=== PATIENT | male | born 1960 | race Caucasian/White ===

== ENCOUNTER → 2021-10-14 | Outpatient (CLI) | payer BC ==
[~2021-10-14] MED LIST: ASPIR 8181 MG PO; CRESTOR10 MG PO; ELIQUIS5 MG PO; FLOVENT DISKUS50 MCG INH; FUROSEMIDE40 MG PO; IMDUR ER TAB 3030 MG PO; LOPRESSOR50 MG PO; POTASSIUM CHLO10 MEQ PO; PROTONIX 40 MG40 M1 PO; SERTRALINE HCL100 MG PO; VITAMIN D325 MCG PO
== END ==
LOC: ECHO 08:40 → NM 10:00
DX: I20.8 Other forms of angina pectoris (principal); I48.21 Permanent atrial fibrillation; R06.02 Shortness of breath
CPT/HCPCS: ECHO; 78452; 93017; 93306; A9502; J2785; Q9957

== ENCOUNTER → 2021-10-23 | Outpatient (CLI) | payer BC ==
[2021-10-23 13:40] LABS: HEMOGLOBIN 13.1 gm/dl (14.0-17.5); RED BLOOD COUNT 4.47 M/UL (4.20-5.50); WHITE BLOOD COUNT 7.3 K/UL (4.5-11.0)
[2021-10-23 14:06] LABS: BUN/CREATININE RATIO 20 (0-10)
== END ==
LOC: LAB 13:05
PROVIDERS: Internal Medicine Interventional Cardiology
DX: Z01.810 Encounter for preprocedural cardiovascular examination (principal); I25.119 Atherosclerotic heart disease of native coronary artery with unspecified angina pectoris; I48.21 Permanent atrial fibrillation; E78.5 Hyperlipidemia, unspecified; I50.9 Heart failure, unspecified; R06.02 Shortness of breath; N18.9 Chronic kidney disease, unspecified
CPT/HCPCS: 36415; 80048; 85025; 85610; 85730; 93005

== ENCOUNTER → 2021-10-30 | Outpatient (CLI) | payer BC ==
[~2021-10-30] VITALS: Ht 182.9 cm; Wt 164.7 kg
[~2021-10-30] MED LIST changes: +GLUCOPHAGE 500500 MG PO; +RANOLAZINE ER1000 MG PO; +TRAMADOL HCL50 MG PO
== END ==
LOC: CATH 09:35
DX: I25.118 Atherosclerotic heart disease of native coronary artery with other forms of angina pectoris (principal); I13.0 Hypertensive heart and chronic kidney disease with heart failure and stage 1 through stage 4 chronic kidney disease, or unspecified chronic kidney disease; N18.9 Chronic kidney disease, unspecified; I50.9 Heart failure, unspecified; I48.21 Permanent atrial fibrillation; K21.9 Gastro-esophageal reflux disease without esophagitis; E78.5 Hyperlipidemia, unspecified; G47.33 Obstructive sleep apnea (adult) (pediatric); Z79.01 Long term (current) use of anticoagulants; Z79.84 Long term (current) use of oral hypoglycemic drugs; Z79.899 Other long term (current) drug therapy; Z20.822 Contact with and (suspected) exposure to COVID-19
CPT/HCPCS: 82962; 99152; 99153; C1769; C1887; C1894; J1644; J2250; J3010; J7030; Q9967